=== PATIENT | male | born 1945 | race Caucasian/White ===

== ENCOUNTER → 2023-10-22 | Outpatient (CLI) | payer OTHER, SELFPAY ==
--- NOTE | 2023-10-22 08:48 | CDU_ITS ---
Reason For Study: HX Lt CEA Rt. Velocities/BP Lt. Velocities/BP Prox CCA 76.5/16.0 cm/sec. Prox CCA 88.4/19.5 cm/sec. Mid CCA 67.7/14.9 cm/sec. Mid CCA 75.2/17.6 cm/sec. Dist CCA 68.8/13.8 cm/sec. Dist CCA 61.0/16.6 cm/sec. Prox ICA 61.1/19.3 cm/sec. Prox ICA 56.3/11.0 cm/sec. Mid ICA 81.5/24.8 cm/sec. Mid ICA 86.9/19.4 cm/sec. Dist ICA 82.5/26.1 cm/sec. Dist ICA 100.3/32.0 cm/sec. Rt. ICA/CCA = 1.2. Lt. ICA/CCA = 1.3. Prox ECA 96.0/5.8 cm/sec. Prox ECA 70.0/10.6 cm/sec. Rt. Vert. 38.9/11.1 cm/sec. Lt. Vert. 52.5/12.8 cm/sec. Right Extracranial There is heterogeneous, irregular atherosclerotic plaque noted in the right common carotid artery. There is heterogeneous, irregular atherosclerotic plaque noted in the right internal carotid artery. The atherosclerotic plaque causes acoustic shadowing. There is heterogeneous, irregular atherosclerotic plaque noted in the right external carotid artery. Antegrade flow is noted in the right vertebral artery. Left Extracranial There is heterogeneous, smooth atherosclerotic plaque noted in the left common carotid artery. There is heterogeneous, irregular atherosclerotic plaque noted in the left internal carotid artery. HX LT CEA. There is heterogeneous, irregular atherosclerotic plaque noted in the left external carotid artery. Antegrade flow is noted in the left vertebral artery. Procedure Carotid Duplex 43169. This is a Carotid Duplex examination using B-mode, color flow and specral Doppler. The exam was diagnostic. Exam performed in department. VL/Carotid Duplex Ultrasound Interpretation Summary Mild (<50%) stenosis right extracranial internal carotid. Mild (<50%) stenosis left extracranial internal carotid. Patent and antegrade vertebrals bilaterally. Ordering Physician: Zak Ford Referring Physician: Zak Ford Performed By: Farrukh Eddy RVT
--- NOTE | 2023-10-22 08:48 | VDLE_ITS ---
Reason For Study: BPG Pre-Op Test RIGHT LEFT Rt GSV Prox Thigh - 0.28cm x 0.32cm Lt GSV Prox thigh - 0.18cm x 0.20cm Rt GSV Mid Thigh - 0.22cm x 0.23cm Lt GSV Mid thigh - 0.24cm x 0.26cm Unableto visualize GSV Dist thigh to Prox Lt GSV Dist thigh - 0.21cm x 0.25cm calf. HX previous BPG Lt GSV Knee - 0.15cm x 0.16cm Rt GSV Mid Calf - 0.16cm x 0.22cm Unable to visualize prox to dist calf. Rt GSV Dist Calf - 0.15cm x0.16cm Lt SSV Prox calf - 0.18cm x 0.17cm Rt SSV Prox Calf - 0.18cm x 0.19cm Lt SSV Mid calf - 0.20cm x 0.23cm Rt SSV Mid Calf - 0.17cm x 0.20cm Lt SSV Dist calf - Partially Compressible w/ Rt SSV Dist Calf - 0.20cm x 0.21cm. bright intraluminal echoes finding consistent Procedure w/ CHRONIC SVT. This is a venous duplex using B-mode, color flow and spectral Doppler. Exam performed in department. The exam was diagnostic. VL/Saphenous Vein Mapping, Bilat Interpretation Summary Right great saphenous vein patent with thigh/calf segment previously harvested. Measurements above. Left great saphenous vein patent with measurements above. Right small saphenous vein patent with measurements above. 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 Ordering Physician: Zak Ford Referring Physician: Zak Ford Performed By: Farrukh Eddy, RVT
== END | disposition home or self-care (01) ==
PROVIDERS: Referring Provider Surgery Trauma Surgery; Visit Provider Surgery Trauma Surgery
DX: I70.212 Atherosclerosis of native arteries of extremities with intermittent claudication, left leg (principal); I82.812 Embolism and thrombosis of superficial veins of left lower extremity; I65.23 Occlusion and stenosis of bilateral carotid arteries
CPT/HCPCS: 93880; 93970

== ENCOUNTER 2023-10-30 13:50 | Inpatient (IN) | payer OTHER, MEDICARE, SELFPAY ==
[2023-10-22 10:33] LABS: Mean Corp Hgb Conc 31.1 g/dL (32-36); Mean Corpuscular Hgb 28.9 pg (27.0-32.0); Mean Platelet Vol. 10.1 fl (6.2-12.0); Platelet Count 215 K/mm3 (150-450); RBC Distribution Width CV 13.2 % (11.6-14.6); RBC Distribution Width SD 45.2 fl (35.1-43.9); Red Blood Count 4.84 M/mm3 (4.6-6.2); White Blood Count 9.6 K/mm3 (4.4-11.0)
[2023-10-22 11:00] LABS: Anion Gap 3 (5-15); BUN 26 mg/dL (7-18); BUN/Creat Ratio 21.1 RATIO (10-20); Calcium,Total 9.6 mg/dL (8.5-10.1); Chloride 108 mmol/L (98-107); Creatinine, Serum 1.23 mg/dL (0.70-1.30); EST Glomerular Filtration Rate 60 mL/min (>60); Est Glom Filt Rate - Afr Amer 73 mL/min (>60); Glucose 115 mg/dL (74-106); Potassium 4.5 mmol/L (3.5-5.1); Sodium Level 139 mmol/L (136-145)
[2023-10-30] VITALS (24 sets, daily range): BP systolic 107–151; BP diastolic 55–79; PULSE 52–86; RESP 12–18; TEMP 36.1–36.9; O2SAT 18–99; BMI 30.2; BMI 31.0
[2023-10-30] MEDS: Lactated Ringers 1,000 ML 15 ML IV (06:30)
--- NOTE | 2023-10-30 06:30 | RAD_ITS ---
PROCEDURE: Left iliac stent placement. DATE OF EXAMINATION: October 30, 2023. INDICATION: Male, 78 years old. Left lower extremity claudication. FLUOROSCOPY TIME (if supplied): (10 minutes and 52 seconds) minutes/seconds RAD/Fluoroscopy 1 Hr or Less IMPRESSION: Intraoperative fluoroscopic services provided for placement of a left iliac stent. Electronically Signed: Chan Beauchamp MD at 8:26 EDT ,
--- NOTE | 2023-10-30 07:04 | PCM.PRE.AN2 ---
ASA Classification* ASA Classification ASA Classification: 3 Assessment & Plan Anesthesia* Anesthesia Assessment Anesthesia Assessment: Discussed sedation and/or anesthesia options, risks, benefits, and alternatives with patient/parents/legal guardian/POA. Questions invited. The patient/parents/legal guardian/POA seems to understand and agrees to proceed with anesthesia plan. Reviewed the physical assessment, medical history, allergy history and patient home medications list prior to surgery/procedure/anesthetic and documented any changes. Performed airway and anesthesia risk assessments. Anesthesia Type Anesthesia Type: General (see written pre anesthesia record for full assessment) Anesthesia Focused Assessment* Temperature: 98.4 F Pulse Rate: 58 Blood Pressure: 150/70 Respiratory Rate: 18 Pulse Ox: 18 Airway Assessment Mouth opens: >3 cm Mallampati Score: II Focused Labs Anesthesia Preop lab: CBC WBC 9.6 K/mm3 (4.4-11.0) 10/22/23 10:11 RBC 4.84 M/mm3 (4.6-6.2) 10/22/23 10:11 Hgb 14.0 g/dL (13.0-16.5) 10/22/23 10:11 Hct 45.0 % (40-54) 10/22/23 10:11 Plt Count 215 K/mm3 (150-450) 10/22/23 10:11 CHEMISTRY Potassium 4.5 mmol/L (3.5-5.1) 10/22/23 10:11 Sodium 139 mmol/L (136-145) 10/22/23 10:11 BUN 26 mg/dL (7-18) H 10/22/23 10:11 Creatinine 1.23 mg/dL (0.70-1.30) 10/22/23 10:11 Glucose 115 mg/dL (74-106) H 10/22/23 10:11 COAG Pre-Assessment Diagnosis/Proposed Procedure Planned Operative Procedure(s): LEFT Femoral Endarterectomy, POSSIBLE ILIAC STENT FEMERAL-POPTEALBYPASS, SARTORIUS FLAP Anesthesia History Anesthesia History - senior safety management consultant: Anesthesia History - senior safety management consultant Hx Hospitalization Yes: TURP 10/17/23 11:21 Any Problems With Anesthesia No 10/17/23 11:21 Cholinesterase deficiency No 10/17/23 11:21 You/Your Family Experience No 10/17/23 11:21 fever (hyperthermia) with Relationship Recent Exposure to Contagious No 10/30/23 06:30 Disease Does patient have nerve No 10/17/23 11:21 stimulator Patient instructed to have device shut off --Does patient have Pacemaker No 10/30/23 06:30 or ICD? When Was Last Pacemaker Check QUESTION #4 FULL TEXT: You/Your Family Experience fever (hyperthermia) with Anesthesia Last Oral Intake Last Oral intake: Last Oral Intake NPO since 04:00 10/30/23 06:30 Meds taken in AM with sips of Yes 10/30/23 06:30 water? Meds patient instructed to see med rec 10/30/23 06:30 take am of surgery PONV PONV - senior safety management consultant: PONV - senior safety management consultant Female No 10/17/23 11:21 HX of Motion Sickness No 10/17/23 11:21 HX of N/V After Surgery No 10/17/23 11:21 Non-Smoker Yes 10/17/23 11:21 Duration of Surgery greater Yes 10/17/23 11:21 than 60 minutes Number of Risk Factors 2 10/17/23 11:21 PONV Score Moderate Risk 10/17/23 11:21 Height & Weight Height & Weight: Anesthesia: Height & Weight Height 5 ft 10 in 10/30/23 06:30 Weight: 95.5 kg 10/30/23 06:30 Body Mass Index (BMI) 30.2 10/30/23 06:30 Respiratory Assessment Respiratory Assessment - senior safety management consultant: Respiratory Tract Infection Hx - senior safety management consultant Hx Respiratory Tract Infection No 10/17/23 11:21 STOP Sleep Apnea STOP Sleep Apnea - senior safety management consultant: STOP Sleep Apnea - senior safety management consultant Hx Hypertension Yes: CONTROLLED WITH MED 10/17/23 11:21 Hx Sleep Apnea No 10/17/23 11:21 CPAP BIPAP Do you snore loudly (louder No 10/17/23 11:21 than talking or can be heard Do you often feel tired/ No 10/17/23 11:21 fatigued/ sleepy during daytime? Has anyone observed you stop No 10/17/23 11:21 breathing during sleep? STOP Results Negative 10/17/23 11:21 QUESTION #5 FULL TEXT : Do you snore loudly (louder than talking or can be heard through closed doors)? Tobacco Use History Tobacco Use History - senior safety management consultant: Tobacco Use History - senior safety management consultant Tobacco Use Smoking Status Former smoker 10/17/23 11:21 Hx Tobacco Use No 10/17/23 11:21 Years Smoking Packs Smoked per Day Smoking Cessation Date was No - quit smoking greater 10/17/23 11:21 within the last 15 years than 15 years ago Hx Smoking Cessation Date 04/23/88 10/17/23 11:21 Hx Smoking Cessation Counseling Hematologic Medial History Hematologic Hx - senior safety management consultant: Hematologic Medical Hx - client solutions director Hx of Blood Transfusion No 10/17/23 11:21 Hx of Transfusion in last 3 No 10/17/23 11:21 Months Date of Last Transfusion (if within last 3 months) Ever experience any problems No 10/17/23 11:21 with transfusion(s)? Specify any problems Hx of Preganancy in last 3 N/A 10/17/23 11:21 Months Nurse Filling Out Transfusion NBUCHER 10/17/23 11:21 & Questions: Date: 10/17/23 10/17/23 11:21 Time: 11:24 10/17/23 11:21 Patient unable to answer at this time (ie. confused, unrespo /Reproduction History /Reproductive History - senior safety management consultant: /Reproductive Hx- senior safety management consultant Hx Now No 10/17/23 11:21 Gestational Age (in weeks): EDC: Hx Hx Para Hx Section SAB No 10/17/23 11:21 Active Medications Active Medications: Current Medications Generic Name Dose Route Start Last Admin Trade Name Freq PRN Reason Stop Dose Admin Cefazolin Sodium 2 gm/ Sodium 110 mls @ 150 mls/hr 10/30/23 07:30 Chloride IV 10/30/23 08:13 PREOP ONE Lactated Ringer's 1,000 mls @ 15 mls/hr 10/30/23 06:00 10/30/23 06:30 IV 15 mls/hr .Q48H ASHLIE Administration PFSH Medical History Wears glasses Prostate disease High cholesterol Former smoker Leg cramps History of edema Hypertension Legionnaires' disease Hyperlipidemia Home Medications ?Medication ?Instructions ?Recorded ?Last Taken ?Type atorvastatin 80 mg tablet (Lipitor) 80 mg PO DAILY HYPERLIPIDEMIA 10/09/23 10/29/23 21:30 History clopidogrel 75 mg tablet (Plavix) 75 mg PO DAILY BLOOD THINNER 10/09/23 10/30/23 04:00 History ezetimibe 10 mg tablet (Zetia) 10 mg PO HS HIGH CHOLESTOROL 10/09/23 10/29/23 21:30 History finasteride 5 mg tablet (Proscar) 5 mg PO DAILY BPH 10/09/23 10/29/23 10:00 History gabapentin 300 mg capsule 300 mg PO BID NEUROPATHY 10/09/23 10/29/23 21:00 History losartan 50 mg tablet (Cozaar) 50 mg PO DAILY HTN 10/09/23 10/30/23 04:00 History Allergy/AdvReac Type Severity Reaction Status Date / Time No Known Allergies Allergy Verified 10/30/23 06:43 Family History Other Colon cancer Diabetes Hypertension Surgical History History of cataract extraction with lens replacement History of colonoscopy History of wisdom tooth extraction History of prostate surgery (~06/2023) History of hernia repair (~1999) History of left-sided carotid endarterectomy (~2004) History of femoropopliteal bypass (2007) Social History Smoking Status: Former smoker Tobacco: How many years used: 26 how long ago did patient quit smokinyrs Review of Systems (Anesthesia) ROS Narrative System reviewed and no additional complaints, except as documented.
--- NOTE | 2023-10-30 07:30 | PLAQ_PTH ---
PATIENT: JEROME DIAMOND LOC: ICU U#:[id number] AGE/SX: 78/M ROOM: [place] [address] RE10/30/[address]: Dr. Zak Ford MD : 1945 BED: 1 DIS: 11/01/2023 SPEC #: [id number] RECD: 10/30/23 16:10 STATUS: FOSTER IHSAN #: [id number] YUMI: 10/30/23 07:[address]: Zak Ford DEPT: SURGICAL PATHOLOGY RECD BY: Marcella Baker Tissues: PLAQUE Procedures: Decalcification bone/plaque Surgery Specimen Level III HEADER OPERATION: Left femoral endarterectomy, iliac stent, sartorius flap PRE-OP DIAGNOSIS: Atherosclerosis of [place] arteries of extremities with intermittent claudication, left leg TISSUE SUBMITTED: Plaque- gross only MICROSCOPIC DIAGNOSIS Plaque, endarterectomy: Atherosclerotic tissue with marked calcifications (plaque). ARIANNA/ 11/05/2023 GROSS DESCRIPTION Received in fixative is one container labeled with the patient's name and designated Plaque. The specimen consists of a previously opened indurated piece of tubular tissue measuring 4.5cm in length and up to 1.0cm in diameter. This specimen cuts with gritty sensations. Art Education Professor sections are submitted in one cassette after decalcification. Terence 10/31/2023 TC:5 CPT:25812,49768
--- NOTE | 2023-10-30 07:47 | PCM.HP.BLA ---
History and Physical Allergies No Known Allergies Allergy (Verified 10/10/23 14:43) Medications ?Medication ?Instructions ?Recorded ?Confirmed ?Type atorvastatin 80 mg tablet (Lipitor) 80 mg PO DAILY 10/09/23 10/09/23 History clopidogrel 75 mg tablet (Plavix) 75 mg PO DAILY 10/09/23 10/09/23 History ezetimibe 10 mg tablet (Zetia) 10 mg PO HS 10/09/23 10/09/23 History finasteride 5 mg tablet (Proscar) 5 mg PO DAILY 10/09/23 10/09/23 History gabapentin 300 mg capsule 300 mg PO BID 10/09/23 10/10/23 History losartan 50 mg tablet (Cozaar) 50 mg PO DAILY 10/09/23 10/09/23 History PFSH Medical History Hypertension Legionnaires' disease Hyperlipidemia Surgical History History of prostate surgery (~06/2023) History of hernia repair (~1999) History of left-sided carotid endarterectomy (~2004) History of femoropopliteal bypass (2007) Family History Other Colon cancer Diabetes Hypertension Social History Smoking Status: Former smoker Tobacco: How many years used: 26 how long ago did patient quit smokinyrs HPI HPI HPI: JEROME DIAMOND, is a 78 M who presents to the office today for evaluation of left lower extremity limiting claudication, thigh and calf. He previously has undergone bilateral iliac stents, right femoral-AK popliteal bypass with later jump graft to below knee. His left leg symptoms have been worsening over the past year or so. Now able to walk about 400 yards before needing to stop. Not much different with shopping cart, does not need to sit to get relief. He has had progression of symptoms despite maximal medical tx, structured exercise. He underwent angiogram with runoff at [facility] that revealed patent iliac stents with calcified stenosis of left external iliac, with tandem lesions in mid common femoral and at SFA/profunda origins then preserved SFA until distal there is calcified disease and ultimately occlusion of popliteal with below knee popliteal reconstitution. ROS General General: Yes weakness; No weight change, appetite, fatigue, colon cancer or breast cancer HEENT HEENT: No difficulty swallowing, eye injury, eye surgery, swollen glands or hoarseness Endo Endocrine: No thyroid disease, diabetes mellitus, thyroid cancer, Hair loss, heat intolerance or cold intolerance Skin Skin: No rash or changing moles Musc Musculoskeletal: Yes back problems; No arthritis, rheumatoid arthritis, gout or joint pain Cardio Cardiovascular: Yes high blood pressure; No murmur, pacemaker, heart disease, atrial fibrillation, heart attack, heart stent, palpitations, shortness of breat with exertion or chest pain Psych Psychiatric: No depression, anxiety or hearing voices Resp Respiratory: No shortness of breath, No sleep apnea, No cough, No COPD, No asthma, No emphysema and No wheezing Gastro Gastrointestinal: No abdominal pain, No nausea or vomiting, No diarrhea, No constipation, No blood in stool, No acid reflux, No hemorrhoids, No ulcers, No gallbladder problem and No black,tarry stools David Hematologic: No blood thinners, No blood disorders, No bleeding, No anemia and No blood clots Neuro Neurologic: No system reviewed and no additional complaints, except as documented, No as per HPI, No abnormal gait, No abnormal hearing, No abnormal movements, No abnormal speech, No behavioral changes, No burning sensations, No confusion, No convulsions, No disequilibrium, No dizziness, No localized weakness, No frequent falls, No headache(s), No lack of coordination, No loss of vision, No memory loss, Yes numbness, No other visual disturbances, Yes radicular pain, No restless legs, No sensory deficit, No syncope, Yes tingling, No tremor(s), Yes weakness and No other Exam Const General: cooperative, healthy appearing, comfortable, no acute distress and well developed Nutritional Appearance: well nourished Orientation: alert, awake and oriented x3 HENMT Head: normocephalic and atraumatic Ears: hearing grossly normal bilaterally Nose: external nose normal Eyes General: appearance normal, both eyes and all related structures EOM: EOM intact bilaterally Neck Neck: normal visual inspection, full ROM, no lymphadenopathy and trachea midline Thyroid: thyroid normal Lymphatic: no lymphadenopathy noted Resp Effort & Inspection: normal respiratory effort, able to speak in complete sentences, symmetric chest movement, no audible wheezes, not labored, no stridor and no use of accessory muscles Auscultation: clear to auscultation bilaterally Cardio Rate: regular rate Rhythm: regular rhythm Heart Sounds: no murmurs Bruits: no carotid bruits Pulses: brachial pulses present and radial pulses present Skin General: no rashes or lesions noted and no erythema Wounds: no wounds Neuro Cranial Nerves: CN's II-XI intact bilaterally and EOM intact bilaterally Speech: speech normal Gait: normal gait Motor: strength 5/5 throughout Sensory Exam: no sensory deficits noted Extremities Pulses: Diminished: Right Dorsalis Pedis Pulse (biphasic) and Right Posterior Tibial Pulse (biphasic) and Absent: Left Dorsalis Pedis Pulse (monophasic) and Left Posterior Tibial Pulse (monophasic) Lower Extremity Edema: None: Bilateral Veins: Bilateral: Reticular Veins Psych Appearance: grossly normal and well kempt Mental Status: mental status grossly normal Mood: congruent mood Speech and Movement: speech and movement normal Thought Content: normal Judgment: judgment good Coding Level of Care Code Off vis,new,level 5 Diagnoses Atherosclerosis of [place] arteries of extremities with intermittent claudication, left leg I70.212 Assessment and Plan Assessment and Plan (1) Atherosclerosis of [place] arteries of extremities with intermittent claudication, left leg: -left femoral endarterectomy, iliac stent, sartorius -vein inadequate, so no bypass at this time
[2023-10-30] MEDS: Cefazolin 2 GM in 0.9% Normal Saline (100mL Bag) 100 ML IV (08:11)
[2023-10-30] MEDS: Heparin 10,000 UNITS/10 ML Vial 10000 UNITS (08:32)
[2023-10-30] MEDS: Heparin Injection (Vial) 5,000 UNIT/ML VIAL 5000 UNIT (08:32)
--- NOTE | 2023-10-30 13:47 | PCM.OPRPT ---
Report of Operation Date of Procedure: 10/30/23 Pre-Operative Diagnosis: atherosclerosis with claudication, left lower extremity Post-Operative Diagnosis: same Surgery/Procedure Performed:: left femoral endarterectomy left external iliac lithotripsy angioplasty, stent left sartorius flap IVUS aorta, left common iliac artery, left external iliac artery Surgeon: Zak Ford Type of Anesthesia: General Estimated Blood Loss (mL): 600 Fluids Replaced: 475 ml cell saver return Description of Procedure: HPI: Patient is a 78-year-old male with lifestyle limiting claudication left lower extremity which is refractory to exercise and maximal medical therapy. He previously underwent angiography at outside facility which revealed highly diseased common femoral artery extending into the origin of the SFA and the profunda as well as a calcified significant stenosis of the external iliac artery. He also has occlusion of his distal SFA popliteal with reconstitution of the below the knee popliteal. He has no adequate vein for any potential bypass so plan is to address his iliofemoral disease and assess his symptoms with hopeful satisfactory result. Description of procedure: Upon obtaining form consent and verification correct patient procedure site patient taken to the operating was placed in general anesthesia. He was then positioned prepped and draped in usual sterile fashion and timeout was performed. Oblique incision was made 2 fingerbreadths inferior to the inguinal ligament and Bovie electrocautery was dissect the subcutaneous tissue. Self-retaining retractor then put in position further dissection was carried down to the femoral sheath. This was then incised vertically exposing the femoral vessels and dissection was carried up to the inguinal ligament. The malignant was then freed along its inferior border lying cephalad retraction. Sharp dissection used to dissect free proximally onto the common femoral artery and ultimately up to the distal external iliac artery until a soft clean bubble portion of vessel was identified. Given how proximal the dissection had to be carried and Omni retractor was brought on the field and placed in position and then a renal retractor blade used to retract to the inguinal ligament cephalad. Sharp resected and used to dissect dissected free of the distal external artery circumferentially and a right angle used to place a vessel loop. Writing was then used to place Vesseloops around the medial lateral circumflex vessels then dissection was carried distally. Sharp dissection used dissect the superficial femoral artery which was soft and with limited plaque only at its origin. Right angle used to place a vessel loop beyond the area of plaque and then dissection down onto the profunda was performed down onto the secondary branches to the vessel was soft and free of plaque. Right angle used to place Vesseloops on each of these branches and the patient was in heparinized allowed to circulate for 3 minutes. Distal external iliac artery and the SFA and profunda vessels were then occluded and a longitudinal arteriotomy created 11 blade extended with Mccord scissors. We then performed her endarterectomy with a freer elevator with satisfactory endpoint distally onto the profundofemoral artery and onto the origin of the SFA. 7-0 Prolene suture was used to tack the distal endpoint onto the profunda and the SFA and the lumen was then flushed heparinized and clear of any debris. A bovine pericardial patch was then secured in position using a 5-0 Prolene in a running fashion. Prior to completing the suture line the vessels were flushed and after completing the suture line clamps removed and satisfactory stasis was noted. A micropuncture sheath was then used to access the mid patch in retrograde fashion and then exchanged out for micropuncture sheath. Through this hand-injection iliofemoral angiograms performed revealing satisfactory positioning with no extravasation or dissection. Bentson wire was then advanced through the micro sheath which was then exchanged out for 7 Mosotho sheath. Using a KMP catheter and Glidewire we then traversed the external iliac artery lesion advancing the wire to the abdominal aorta. This was then exchanged for an 018 wire over which an intravascular ultrasound probe was advanced and recorded pullback performed of the aorta, left common iliac artery, left external iliac artery. This revealed an 85% stenosis of highly calcified lesion of the proximal external iliac artery. Using intravascular ultrasound we marked the proximal distal extent and obtained reference vessel size mismatch. Given the calcified nature of the lesion lithotripsy angioplasty was felt to be appropriate so a shockwave 8 x 30 angioplasty balloon was advanced in position and engaged for the for 300 cycles and very positioned across the lesion. After this was completed the balloon was withdrawn and repeat intravascular ultrasound revealed there is some residual stenosis though significant improvement and luminal gain. Next an 8 x 40 [employer] AngioSculpt balloon was advanced and inflated to nominal for 2 minutes across the entirety of the lesion. This was then deflated withdrawn repeat angiography revealed satisfactory appearance with no extravasation dissection. A Swarm64 Zilver PTX 8 x 40 paclitaxel coated stent was then advanced to the superior aspect of the lesion with overlapping of a previously placed common iliac artery stent. This was then deployed and a second [employer] bare-metal stent 10 x 40 was advanced and placed inferior to the initial stent with adequate overlap. These were then postdilated with an 8 mm angioplasty balloon and completion angiography revealed satisfactory appearance with no extravasation or dissection. There is now a robust pulse in the common femoral artery which is a significant improvement from prior to treating the lesion. Wires and catheters then withdrawn and the common femoral artery occluded with atraumatic clamps. The puncture site was then repaired with 6-0 Prolene U-stitch and the clamps removed satisfactory stasis noted. Surgiflo topical hemostatic was then applied to the suture line and manual pressure held until hemostasis was obtained. Next we turned attention to the sartorius flap with dissection laterally over to the fascia inferior to the ASIS. The fascia was then incised vertically exposing the sartorius muscle. This was then dissected free up to its insertion and detached with Bovie dissection. There is then mobilized along its lateral edge and reflected medially to cover the femoral vessels and bovine patch. There is then secured in position with a 2-0 Vicryl and then the incision was closed with 3-0 Vicryl, 4 Monocryl and Dermabond for the skin. Patient was then awake from anesthesia taken to recovery room with anticipated admission to the intensive care unit for hemodynamic and vascular monitoring. Grafts/Implants Used: 8x40 [employer] Zilver PTX 10 x 40 Cook Zilver
[2023-10-30] MEDS: Bupivacaine Mpf 0.5% 30 ML VIAL (13:51)
--- NOTE | 2023-10-30 14:20 | PCM.POST.ANE ---
Anesthesia: Postop Eval I Current Vital Signs Temperature: 97.2 F Pulse Rate: 86 Blood Pressure: 151/61 Respiratory Rate: 18 Pulse Ox: 96 Assessment Airway patent: Yes Spontaneous unlabored respirations: Yes nausea: No Vomiting: No Anesthesia Complication: No Fluid Hydration Crystalloid volume administer (ml): 2,100 Total IV fluid infused: 2,100 Progress Note Anesthesia document: Postop Eval 1 completed: Yes
[2023-10-30 15:10] LABS: Hematocrit 37.3 % (40-54); Hemoglobin 12.1 g/dL (13.0-16.5); Mean Corp Hgb Conc 32.4 g/dL (32-36); Mean Corpuscular Hgb 29.6 pg (27.0-32.0); Mean Corpuscular Volume 91.2 fL (80-94); Mean Platelet Vol. 10.3 fl (6.2-12.0); Platelet Count 172 K/mm3 (150-450); RBC Distribution Width CV 13.2 % (11.6-14.6); RBC Distribution Width SD 44.2 fl (35.1-43.9); Red Blood Count 4.09 M/mm3 (4.6-6.2); White Blood Count 16.4 K/mm3 (4.4-11.0)
--- NOTE | 2023-10-30 15:18 | POSTOPAN2_ITS ---
Anesthesia Postop Eval I Sum Postop Eval Completion status Anesthesia document: Postop Eval 1 completed: Yes Anesthesia Postop Eval I Summary Anesthesia Postop Eval I Summary: Anesthesia Postop Eval I: Assessment Summary Airway patent Yes 10/30/23 14:21 ESTATE PLANNING DIRECTOR.CSIR Spontaneous unlabored Yes 10/30/23 14:21 ESTATE PLANNING DIRECTOR.CSIR respirations Mental status nausea No 10/30/23 14:21 ESTATE PLANNING DIRECTOR.CSIR Vomiting No 10/30/23 14:21 ESTATE PLANNING DIRECTOR.CSIR Anesthesia Postop Eval I: Fluid Summary Crystalloid volume administer 2,100 10/30/23 14:21 ESTATE PLANNING DIRECTOR.CSIR (ml) Colloids volume administered ( ml) Blood Product volume administered (ml) Total IV fluid infused 2,100 10/30/23 14:21 ESTATE PLANNING DIRECTOR.CSIR Anesthesia Postop Eval I: Summary Notes Anesthesia Complication No 10/30/23 14:21 ESTATE PLANNING DIRECTOR.CSIR Anesthesia Complication Comment: Post-operative progress note Anesthesia: Postop Eval II Evaluation Mental status: Awake and Calm Pain Level: 1 nausea: No Vomiting: No Complications Anesthesia Complication: No
--- NOTE | 2023-10-30 15:18 | PCM.POSTANE2 ---
Anesthesia Postop Eval I Sum Postop Eval Completion status Anesthesia document: Postop Eval 1 completed: Yes Anesthesia Postop Eval I Summary Anesthesia Postop Eval I Summary: Anesthesia Postop Eval I: Assessment Summary Airway patent Yes 10/30/23 14:21 HEAD INSPECTOR AND CENTER MARKER.CSIR Spontaneous unlabored Yes 10/30/23 14:21 HEAD INSPECTOR AND CENTER MARKER.CSIR respirations Mental status nausea No 10/30/23 14:21 HEAD INSPECTOR AND CENTER MARKER.CSIR Vomiting No 10/30/23 14:21 HEAD INSPECTOR AND CENTER MARKER.CSIR Anesthesia Postop Eval I: Fluid Summary Crystalloid volume administer 2,100 10/30/23 14:21 HEAD INSPECTOR AND CENTER MARKER.CSIR (ml) Colloids volume administered ( ml) Blood Product volume administered (ml) Total IV fluid infused 2,100 10/30/23 14:21 HEAD INSPECTOR AND CENTER MARKER.CSIR Anesthesia Postop Eval I: Summary Notes Anesthesia Complication No 10/30/23 14:21 HEAD INSPECTOR AND CENTER MARKER.CSIR Anesthesia Complication Comment: Post-operative progress note Anesthesia: Postop Eval II Evaluation Mental status: Awake and Calm Pain Level: 1 nausea: No Vomiting: No Complications Anesthesia Complication: No
[2023-10-30] MEDS: 0.45% Normal Saline 1,000 ML 100 ML IV (16:21)
[2023-10-30] MEDS: Acetaminophen 500 MG Tablet 1000 MG PO ×2 (16:22→20:33)
[2023-10-30] MEDS: BENZOCAINE/MENTHOL 1 LOZENGE MUCOUS MEM ×2 (16:53→20:36)
[2023-10-30] MEDS: oxyCODONE 5 MG Tablet PO (19:24)
[2023-10-30] MEDS: Atorvastatin Calcium 80 MG Tablet PO (20:33)
[2023-10-30] MEDS: Ezetimibe 10 MG Tablet PO (20:33)
[2023-10-30] MEDS: Gabapentin 300 MG Capsule PO (20:33)
[2023-10-31] VITALS (20 sets, daily range): BP systolic 92–169; BP diastolic 35–81; PULSE 57–78; RESP 13–21; TEMP 36.3–36.8; O2SAT 93–98; BMI 30.7
[2023-10-31] MEDS: 0.45% Normal Saline 1,000 ML 100 ML IV (01:48)
[2023-10-31 03:09] LABS: Absolute Lymphocyte Count 1.52 X10^3/uL (0.83-4.51); Absolute Neutrophil Count 5.9 X10^3/uL (2.0-7.7); Basophil# 0.04 X10^3/uL; Basophil% 0.5 % (0-1); Eosinophil# 0.23 X10^3/uL; Eosinophils% 2.7 % (0-5); Lymphocyte # 1.52 X10^3/ul (0.83-4.51); Lymphocyte % 17.9 % (19-41); Mean Corp Hgb Conc 31.4 g/dL (32-36); Mean Corpuscular Hgb 29.5 pg (27.0-32.0); Mean Corpuscular Volume 93.8 fL (80-94); Mean Platelet Vol. 10.5 fl (6.2-12.0); Monocyte# 0.76 X10^3/uL; NRBC Flagged by Analyzer 0 % (0-5); Neutrophil % 69.4 % (47-70); Platelet Count 158 K/mm3 (150-450); RBC Distribution Width CV 13.5 % (11.6-14.6); RBC Distribution Width SD 46.5 fl (35.1-43.9); Red Blood Count 3.73 M/mm3 (4.6-6.2); White Blood Count 8.5 K/mm3 (4.4-11.0)
[2023-10-31 03:24] LABS: Anion Gap 6 (5-15); BUN 22 mg/dL (7-18); BUN/Creat Ratio 17.2 RATIO (10-20); Calcium,Total 8.2 mg/dL (8.5-10.1); Chloride 106 mmol/L (98-107); Creatinine, Serum 1.28 mg/dL (0.70-1.30); EST Glomerular Filtration Rate 58 mL/min (>60); Est Glom Filt Rate - Afr Amer 70 mL/min (>60); Estimated Creatinine Clearance 54.96 ml/min; Glucose 106 mg/dL (74-106); Potassium 4.2 mmol/L (3.5-5.1); Sodium Level 137 mmol/L (136-145)
[2023-10-31] MEDS: Acetaminophen 500 MG Tablet 1000 MG PO ×3 (05:04→20:32)
[2023-10-31] MEDS: oxyCODONE 5 MG Tablet PO (08:20)
[2023-10-31] MEDS: Gabapentin 300 MG Capsule PO ×2 (08:20→20:29)
[2023-10-31] MEDS: Losartan Potassium 50 MG Tablet PO (08:21)
[2023-10-31] MEDS: Clopidogrel Bisulfate 75 MG Tablet PO (08:21)
[2023-10-31] MEDS: Enoxaparin 40 MG/0.4 ML Syringe SC (08:22)
[2023-10-31] MEDS: Finasteride 5 MG Tablet PO (08:22)
--- NOTE | 2023-10-31 12:30 | CASEMGMT ---
FRANCISCO TERRAZAS Face to Face with patient for initial transition planning/care coordination assessment. RN CM introduced self and role at [facility]. Patient sitting in chair, alert and oriented, at bedside. Patient willing to participate in assessment and is able to answer all questions appropriately. Care providers, pharmacy, and demographics verified. PCP: Ritika Specialists: Liliana, vascular; Certified Dietary ManagerKieran Preferred Pharmacy: Insurance: MMO, MCR A Prescription Benefit: yes Living Will/HPOA: patient think they have completed and would be his , Lilia Dietz LNOK: Living Arrangements: Patient lives with in a 2 story home with access for bed and bath on first floor. Patient is independent and able to ambulate stairs. Transportation: self, DME/HHC: Patient states he has cane at home. PT recommends walker at discharge, patient states he would maybe consider walker at discharge, CM to follow. No previous HHC or SNF Patient wishes to discharge home, denies need for home health at this time. Patient states he has no further needs or concerns at this time. CM to follow for discharge planning needs that may arise. Disposition Plan: Patient to discharge home with family support and follow-up plans in place. Radha PONCE, RN, CM
--- NOTE | 2023-10-31 16:32 | PCM.PN.SRG ---
Subjective Subjective Patient was seen resting comfortably in the bedside chair. He complains of pain at the L groin incision site with use of his leg, no significant discomfort at rest. He denies any pain through the rest of his LLE. He did get up and ambulate with therapy today and reports this went overall well. He reports that he has not yet had a bowel movement, he is not having any abdominal pain and is tolerating a normal diet. He also feels that the oxycodone makes him foggy so he is now trying to stick mostly to tylenol. Otherwise, no complaints. His Hgb is 11.0 today. He has been hemodynamically stable. Objective Data Objective Data Vital Signs: Vital Signs Temp Pulse Resp BP Pulse Ox O2 Del Method 97.4 F L 76 16 121/48 H 94 Room Air 10/31/23 12:00 10/31/23 16:00 10/31/23 15:00 10/31/23 15:00 10/31/23 15:00 10/31/23 15:00 Oxygen Delivery Method Room Air Weight: 214 lb 8.156 oz Body Mass Index (BMI) 30.7 Intake & Output: Intake and Output for Last 24 Hours 10/29/23 10/30/23 10/31/23 23:59 23:59 23:59 Intake Total 742.5 / 742.5 2680 / 2680 Output Total 1750 / 1750 1974 / 1974 Balance -1007.5 / -1007.5 705 / 705 Lab / Micro Data 10/31/23 02:48 10/31/23 02:48 Labs: Laboratory Results - last 24 hr 10/31/23 02:48: WBC 8.5, RBC 3.73 L, Hgb 11.0 L, Hct 35.0 L, MCV 93.8, MCH 29.5, MCHC 31.4 L, RDW Std Deviation 46.5 H, RDW Coeff of Kirsten 13.5, Plt Count 158, MPV 10.5, Immature Gran % (Auto) 0.500, Neut % (Auto) 69.4, Lymph % (Auto) 17.9 L, [place] % (Auto) 9.0, Eos % (Auto) 2.7, Baso % (Auto) 0.5, Absolute Neuts (auto) 5.9, Absolute Lymphs (auto) 1.52, Nucleated RBC % 0, Sodium 137, Potassium 4.2, Chloride 106, Carbon Dioxide 25.0, Anion Gap 6, BUN 22 H, Creatinine 1.28, Estim Creat Clear Calc 54.96, Est GFR (MDRD) Af Amer 70, Est GFR (MDRD) Non-Af 58 L, BUN/Creatinine Ratio 17.2, Glucose 106, Calcium 8.2 L Radiography Diagnostic Testing: Radiology Impression Fluoroscopy 10/30/23 06:30 IMPRESSION: Intraoperative fluoroscopic services provided for placement of a left iliac stent. Electronically Signed: Chan Beauchamp MD at 8:26 EDT , Physical Exam Const alert, oriented x3 and no apparent distress General Appearance: cooperative HEENT normocephalic, head/scalp atraumatic, hearing grossly normal bilaterally, external ears normal and external nose normal Eyes EOMs intact bilaterally General Eye: normal appearance of both eyes Neck General: normal visual inspection and trachea midline Resp normal respiratory effort, no retractions and no use of accessory muscles Effort and Inspection: able to speak in complete sentences; Negative for labored, stridor, retractions or audible wheezes Cardio regular rate and regular rhythm Extremity Extremity Narrative: L groin incision site with Prevena vacuum dressing C/D/I, there is moderate ecchymosis and mild edema which is soft to palpation. L DP and PT doppler signals are multiphasic Skin no rashes or lesions noted Neuro oriented x3, CN's II-XII intact bilaterally, moves all extremities, no focal motor deficits and no sensory deficits noted Psych mental status grossly normal Appearance: grossly normal Attitude: calm and engaged Activity / Motor Behavior: appropriate eye contact Speech: normal speech Mood & Affect: euthymic mood Judgement: judgement good Assessment & Plan Assessment/Plan (1) Atherosclerosis of [place] arteries of extremities with intermittent claudication, left leg: PLAN: He is s/p L femoral endarterectomy, L sartorius flap, and L external iliac stent. His vascular exam is stable and improved from preop. L groin incision site with Prevena dressing intact and maintaining good seal. Will schedule stool softener and Miralax to aid with constipation. Continue Plavix. Start ASA 81mg daily as well. Encouraged continued ambulation with nursing/PT. PT suggested walker may be beneficial, can provide Rx at d/c, patient will continue to consider. Anticipate discharge home tomorrow.
[2023-10-31] MEDS: Docusate Sodium 100 MG Capsule PO ×2 (17:08→20:30)
[2023-10-31] MEDS: Atorvastatin Calcium 80 MG Tablet PO (20:30)
[2023-10-31] MEDS: Ezetimibe 10 MG Tablet PO (20:30)
[2023-10-31] MEDS: Polyethylene Glycol 3350 17 GM PACKET PO (20:31)
[2023-11-01 02:45] VITALS: BP 165/71; PULSE 69; RESP 19; TEMP 36.3; O2SAT 95
[2023-11-01 02:56] VITALS: BP 165/71; PULSE 69
[2023-11-01] MEDS: 0.9% Saline Lock 10 ML Syringe IV (02:56)
[2023-11-01] MEDS: hydrALAZINE 20 MG/ML Vial 10 MG IV (02:56)
[2023-11-01 05:07] VITALS: BMI 30.3
[2023-11-01] MEDS: Acetaminophen 500 MG Tablet 1000 MG PO (05:41)
[2023-11-01 08:00] VITALS: PULSE 72
[2023-11-01] MEDS: Polyethylene Glycol 3350 17 GM PACKET PO (08:08)
[2023-11-01] MEDS: Docusate Sodium 100 MG Capsule PO (08:09)
[2023-11-01] MEDS: Losartan Potassium 50 MG Tablet PO (08:09)
[2023-11-01] MEDS: Enoxaparin 40 MG/0.4 ML Syringe SC (08:09)
[2023-11-01] MEDS: Aspirin 81 MG TAB.CHEW PO (08:09)
[2023-11-01] MEDS: Finasteride 5 MG Tablet PO (08:10)
[2023-11-01] MEDS: Clopidogrel Bisulfate 75 MG Tablet PO (08:10)
[2023-11-01] MEDS: Gabapentin 300 MG Capsule PO (08:13)
--- NOTE | 2023-11-01 08:21 | PN.SURG_ITS ---
Subjective Subjective Patient was seen this morning resting comfortably in his bedside chair eating breakfast. He reports he is feeling better today than yesterday. His pain has improved a bit at the L groin access site, he is able to lift his leg a bit better today. He feels he is walking better. He reports he still has not had a BM. He is passing a little gas. He is not having any abdominal discomfort, nausea, vomiting. He is receiving scheduled stool softeners and Miralax. He is tolerating a normal diet. He has been managing his pain with tylenol alone. Objective Data Objective Data Vital Signs: Vital Signs Temp Pulse Resp BP Pulse Ox O2 Del Method 97.3 F L 69 19 H 165/71 H 95 Room Air 11/01/23 02:45 11/01/23 02:56 11/01/23 02:45 11/01/23 02:56 11/01/23 02:45 11/01/23 02:45 Oxygen Delivery Method Room Air Weight: 211 lb 13.828 oz Body Mass Index (BMI) 30.3 Intake & Output: Intake and Output for Last 24 Hours 10/30/23 10/31/23 11/01/23 23:59 23:59 23:59 Intake Total 742.5 / 742.5 2680 / 2680 Output Total 1750 / 1750 2475 / 2875 1725 / 1725 Balance -1007.5 / -1007.5 205 / -195 -1725 / -1725 Lab / Micro Data 10/31/23 02:48 10/31/23 02:48 Radiography Diagnostic Testing: Radiology Impression Fluoroscopy 10/30/23 06:30 IMPRESSION: Intraoperative fluoroscopic services provided for placement of a left iliac stent. Electronically Signed: Chan Beauchamp MD at 8:26 EDT , Physical Exam Const alert, oriented x3 and no apparent distress General Appearance: cooperative HEENT normocephalic, head/scalp atraumatic, hearing grossly normal bilaterally, external ears normal and external nose normal Eyes EOMs intact bilaterally General Eye: normal appearance of both eyes Neck General: normal visual inspection and trachea midline Resp normal respiratory effort, no retractions and no use of accessory muscles Effort and Inspection: able to speak in complete sentences; Negative for labored, stridor, retractions or audible wheezes Cardio regular rate and regular rhythm Extremity Extremity Narrative: L groin incision site with Prevena vacuum dressing C/D/I, there is moderate ecchymosis and mild edema which is soft to palpation. L DP and PT doppler signals are multiphasic Skin no rashes or lesions noted Neuro oriented x3, CN's II-XII intact bilaterally, moves all extremities, no focal motor deficits and no sensory deficits noted Psych mental status grossly normal Appearance: grossly normal Attitude: calm and engaged Activity / Motor Behavior: appropriate eye contact Speech: normal speech Mood & Affect: euthymic mood Judgement: judgement good Assessment & Plan Assessment/Plan (1) Atherosclerosis of [place] arteries of extremities with intermittent claudication, left leg: PLAN: He is s/p L femoral endarterectomy, L sartorius flap, and L external iliac stent. His vascular exam is stable and improved from preop. L groin incision site with Prevena dressing intact and maintaining good seal. His pain is well controlled with tylenol. He feels he is ambulating better. He feels comfortable and eager for discharge home. Will discharge to home with his today. Continue to encourage scheduled stool softeners, Miralax, and ambulation to aid with constipation.
--- NOTE | 2023-11-01 08:27 | PCM.DC.SUM ---
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 His vascular exam is stable and improved from preop. L groin incision site with Prevena dressing intact and maintaining good seal. His pain is well controlled with tylenol. He feels he is ambulating better. He feels comfortable and eager for discharge home. Will discharge to home with his today. Continue to encourage scheduled stool softeners, Miralax, and ambulation to aid with constipation. Medications at Discharge Home Medications atorvastatin 80 mg tablet (Lipitor) 80 mg PO DAILY HYPERLIPIDEMIA 10/09/23 clopidogrel 75 mg tablet (Plavix) 75 mg PO DAILY BLOOD THINNER 10/09/23 ezetimibe 10 mg tablet (Zetia) 10 mg PO HS HIGH CHOLESTOROL 10/09/23 finasteride 5 mg tablet (Proscar) 5 mg PO DAILY BPH 10/09/23 gabapentin 300 mg capsule 300 mg PO BID NEUROPATHY 10/09/23 losartan 50 mg tablet (Cozaar) 50 mg PO DAILY HTN 10/09/23 aspirin 81 mg chewable tablet 81 mg PO BREAKFAST #0 tabs 11/01/23 docusate sodium 100 mg capsule 100 mg PO BID 7 days #14 caps 11/01/23 oxycodone 5 mg tablet 5 mg PO Q8H PRN PRN Pain Score 4-10 5 days #15 tabs 11/01/23 Hospital Course Summary of Care Provided Hospital Course: Mr. Russell Dietz is a 78 y/o male who underwent L femoral endarterectomy with L sartorius flap and L external iliac lithotripsy and stent on 10/30/2023. Postoperatively, he was routinely admitted to the ICU for hemodynamic monitoring. He has remained hemodynamically stable. He has had significant improvement in his LLE vascular status following surgery with easily dopplerable multiphasic L DP and PT signals. He has had expected surgical site pain which is well managed with tylenol. He is tolerating a normal diet. He is voiding urine without difficulty. He has had some constipation but without any associated abdominal pain, nausea, or vomiting. He worked with PT and did well, they had recommended a walker but he feels he is walking much better today and declines a prescription for a walker. He has a Prevena vacuum dressing in place over the L groin incision site which has been maintaining good seal. This will remain in place for 1 week. He is appropriate for discharge home today with his . He has outpatient follow-up scheduled in the office on 11/15/23 at 11:00. Physical Exam Const alert, oriented x3 and no apparent distress General Appearance: cooperative HEENT normocephalic, head/scalp atraumatic, hearing grossly normal bilaterally, external ears normal and external nose normal Eyes EOMs intact bilaterally General Eye: normal appearance of both eyes Neck General: normal visual inspection and trachea midline Resp normal respiratory effort, no retractions and no use of accessory muscles Effort and Inspection: able to speak in complete sentences; Negative for labored, stridor, retractions or audible wheezes Cardio regular rate and regular rhythm Extremity Extremity Narrative: L groin incision site with Prevena vacuum dressing C/D/I, there is moderate ecchymosis and mild edema which is soft to palpation. L DP and PT doppler signals are multiphasic Skin no rashes or lesions noted Neuro oriented x3, CN's II-XII intact bilaterally, moves all extremities, no focal motor deficits and no sensory deficits noted Psych mental status grossly normal Appearance: grossly normal Attitude: calm and engaged Activity / Motor Behavior: appropriate eye contact Speech: normal speech Mood & Affect: euthymic mood Judgement: judgement good Weight / BMI Weight Weight: 211 lb 13.828 oz Body Mass Index (BMI) 30.3 ABG / Lab / Microbiology Data 10/31/23 02:48 10/31/23 02:48 Radiography Diagnostic Testing: Radiology Impression Fluoroscopy 10/30/23 06:30 IMPRESSION: Intraoperative fluoroscopic services provided for placement of a left iliac stent. Electronically Signed: Chan Beauchamp MD at 8:26 EDT , D/C Instructions Discharge Diet: No restrictions Weight Bearing Status: Weight bearing as tolerated Lifting Restricted to (Lbs): 20 Lifting Restrictions: Do not lift greater than 20 pounds for 3 weeks Call your doctor if your incision/area has: Sudden Increased Bleeding, Increased Pain/ Swelling and Foul Smelling Discharge Call your doctor if you observe: Fever of 101 or Higher and Uncontrolled pain Remove Dressing in: 1 week Additional Instructions: You have a Prevena vacuum dressing in place over the left groin incision site. This dressing is to remain in place for 7 total days as tolerated and may be removed on Sunday11/06/23. If the unit begins to alarm or loses seal and it cannot be re-established, then you may remove it sooner. To remove this vacuum dressing: (1) Hold the power button until the unit turns off, the green light will disappear (2) Follow the tubing as it leaves the machine until you reach the white plastic connectors (3) Twist these white connectors to disconnect them (4) You should notice the purple foam in the dressing puffs up (5) Once the purple foam has puffed up, you may remove/peel away the adhesive dressing (6) Once removed, the entire dressing and unit may be discarded. If you have any questions or concerns about this please contact the office. Your incision site was closed with skin glue. Once the dressing above is removed, you may leave this area open to air. The glue will continue to protect it. The glue will peel away on its own over the next couple of weeks, please do not pick at it. You may shower. It is okay for soap and water to rinse over the incision site, be sure to pat gently to dry and to dry the area thoroughly. Do not submerge the incision site in water (such as to take a bath, swim, etc) for 3 weeks. Do not lift greater than 20 pounds for 3 weeks. Otherwise you may proceed with activity as tolerated, walking is encouraged. You have been prescribed oxycodone 5 mg tablets to be taken every 8 hours as needed for pain. Take this medication only as needed. Do not drive while you are taking this medication. You may take Tylenol with this medication. Please continue to take both Plavix 75mg tablets daily and Aspirin 81mg tablet daily. Your follow-up appointment in the office is scheduled for 11/15/23 at 11:00. If you need to change this appointment or if you have any other questions or concerns please contact our office at . Please Follow Up With: Edith Whitlock PA When: 11/15/23 at 11:00 Meaningful Use Info Meaningful Use Meaningful Use Diagnoses (Choose all that apply): None applicable Ischemic Stroke Statin Dosing Therapy Reference: STATIN DOSE THERAPY REFERENCE: * Patients > 75 years receive moderate or high dose statin therapy. * Patients 75 years or YOUNGER should receive HIGH intensity statin dose unless contraindicated. You will be required to document reason for non-treatment if statin daily dose does not meet guidelines. HIGH DOSE STATIN THERAPY DAILY Atorvastatin > than or = to 40 mg Rosuvastatin > than or = to 20 mg Amlodipine + Atorvastatin > than or = to 2.5/40 mg Ezetimibe + Simvastatin 10/80 mg Simvastatin 80mg Discharge Plan Admission Admit Date/Time: 10/30/23 13:50 Primary Reason for Your Visit: Left femoral endarterectomy with iliac stent and sartorius flap Attending Provider: Zak Ford Primary Care Provider: GARCIA FLORES Instructions Additional Instructions / Restrictions: You have a Prevena vacuum dressing in place over the left groin incision site. This dressing is to remain in place for 7 total days as tolerated and may be removed on Sunday11/06/23. If the unit begins to alarm or loses seal and it cannot be re-established, then you may remove it sooner. To remove this vacuum dressing: (1) Hold the power button until the unit turns off, the green light will disappear (2) Follow the tubing as it leaves the machine until you reach the white plastic connectors (3) Twist these white connectors to disconnect them (4) You should notice the purple foam in the dressing puffs up (5) Once the purple foam has puffed up, you may remove/peel away the adhesive dressing (6) Once removed, the entire dressing and unit may be discarded. If you have any questions or concerns about this please contact the office. Your incision site was closed with skin glue. Once the dressing above is removed, you may leave this area open to air. The glue will continue to protect it. The glue will peel away on its own over the next couple of weeks, please do not pick at it. You may shower. It is okay for soap and water to rinse over the incision site, be sure to pat gently to dry and to dry the area thoroughly. Do not submerge the incision site in water (such as to take a bath, swim, etc) for 3 weeks. Do not lift greater than 20 pounds for 3 weeks. Otherwise you may proceed with activity as tolerated, walking is encouraged. You have been prescribed oxycodone 5 mg tablets to be taken every 8 hours as needed for pain. Take this medication only as needed. Do not drive while you are taking this medication. You may take Tylenol with this medication. Please continue to take both Plavix 75mg tablets daily and Aspirin 81mg tablet daily. Your follow-up appointment in the office is scheduled for 11/15/23 at 11:00. If you need to change this appointment or if you have any other questions or concerns please contact our office at . Discharge Orders/Prescriptions Prescriptions: New docusate sodium 100 mg Capsule 100 mg PO BID 7 Days Qty: 14 0RF aspirin 81 mg Tablet,Chewable 81 mg PO BREAKFAST Qty: 0 0RF oxycodone 5 mg Tablet 5 mg PO Q8H PRN PRN (Reason: Pain Score 4-10) 5 Days Qty: 15 0RF Continued losartan [Cozaar] 50 mg tablet 50 mg PO DAILY gabapentin 300 mg capsule 300 mg PO BID finasteride [Proscar] 5 mg tablet 5 mg PO DAILY ezetimibe [Zetia] 10 mg tablet 10 mg PO HS clopidogrel [Plavix] 75 mg tablet 75 mg PO DAILY atorvastatin [Lipitor] 80 mg tablet 80 mg PO DAILY Disposition Disposition (needs filled in before D/C Order can be placed): Home, Self Care
[2023-11-01 08:45] VITALS: BP 138/62; PULSE 72; RESP 16; TEMP 36.6; O2SAT 97
--- NOTE | 2023-11-01 10:41 | CASEMGMT ---
FRANCISCO TERRAZAS NOTE: Pt has been using a WW while @ [facility] and per therapy note yesterday, pt could benefit from WW. FRANCISCO TERRAZAS to room. Pt sitting up in chair in room. Introduced self and role. Discussed walker. Pt states he does not want a walker, stating he does not think he needs it and prefers to use his walking sticks once he returns home. He also declines wanting any therapy. He was made aware to f/u with his PCP if he changes his mind once returning home. He declines having any discharge needs/concerns. 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 Francine PONCE RN, CM
[2023-11-01 12:15] VITALS: BP 135/62; PULSE 67; RESP 18; TEMP 36.6; O2SAT 97
== END 2023-11-01 12:30 | disposition home or self-care (01) | DRG 279 ==
LOC: ICU 16:49
PROVIDERS: Admitting Provider Surgery Trauma Surgery; Referring Provider Surgery Trauma Surgery; Visit Provider Surgery Trauma Surgery
PROC: 04FJ3ZZ Fragmentation of Left External Iliac Artery, Percutaneous Approach (ICD-10-PCS; principal; 2023-10-30 07:10)
DX: I70.212 Atherosclerosis of native arteries of extremities with intermittent claudication, left leg (principal); E78.5 Hyperlipidemia, unspecified; I10 Essential (primary) hypertension; K59.00 Constipation, unspecified; Z95.820 Peripheral vascular angioplasty status with implants and grafts; Z79.02 Long term (current) use of antithrombotics/antiplatelets; Z79.82 Long term (current) use of aspirin; Z79.899 Other long term (current) drug therapy; Z87.891 Personal history of nicotine dependence
CPT/HCPCS: 36415; 76000; 80048; 85025; 85027; 86850; 86900; 86901; 88304; 88311; 93005; 94668; 97162; 97165; 97802; 99252; A4648; C1769; C1894; J7030; J7120; A4216; C1725; G0463; J2405

== ENCOUNTER → 2023-12-05 | Outpatient (CLI) | payer OTHER, SELFPAY ==
--- NOTE | 2023-12-05 12:57 | ART_ITS ---
Reason For Study: PVD Procedure A bilateral lower extremity continuous wave Doppler with analog waveform analysis,segmental pressures,and ankle brachial indexes with exercise. Left Segmental Pressures Left brachial= 156mmHg. Left thigh = 146mmHg. Left calf = 123mmHg. Left posterior tibial artery = 112mmHg. Left dorsalis pedis artery = 91mmHg. Left digit = 91 mmHg. The left dorsalis pedis waveforms are biphasic. The left posterior tibial artery waveforms are biphasic. Right Segmental Pressures Right brachial= 151mmHg. Right thigh = 163mmHg. Right calf = 172mmHg. Right posterior tibial artery = 149mmHg. Right dorsalis pedis artery = 255mmHg. Right digit = 119 mmHg. The right dorsalis pedis waveforms are triphasic. The right posterior tibial artery waveforms are triphasic. Indices The right ankle brachial index by the dorsalis pedis post exercise is .90. The right ankle brachial index by the dorsalis pedis is NC. The right ankle brachial index by the posterior tibial artery is .96. The left posterior tibial artery index post exercise is .34. The left ankle brachial index by the dorsalis pedis is .58. The left ankle brachial index by the posterior tibial artery is .72. VL/Lower Ext Art Exam w/ Exercise Interpretation Summary Right MIRNA 0.96, mild arterial insufficiency. Doppler/PVR waveforms and segmenta l pressures reveal proximal SFA, infrapopliteal disease. Right lower extremity exhibits no change in response to exercise. Left MIRNA 0.72, moderate arterial insufficiency. Doppler/PVR waveforms and segme ntal pressures reveal distal SFA/popliteal disease. Left lower extremity with abnormal response to exercise and post exercise MIRNA i n the severe category. Ordering Physician: Edith Whitlock Performed By: CHON YANCEY RVT RDMS
== END | disposition home or self-care (01) ==
PROVIDERS: Referring Provider Physician Assistant; Visit Provider Physician Assistant
DX: I70.212 Atherosclerosis of native arteries of extremities with intermittent claudication, left leg (principal)
CPT/HCPCS: 93924